=== PATIENT | male | born 1940 | race Two or more races ===

== ENCOUNTER → 2017-02-01 | Outpatient (CLI) | payer MEDICARE, MEDICAID ==
[~2017-02-01] MED LIST: ACET325T14 PO; ATOR20TA9 PO; FURO20TA3 PO; GLUC1500 PO; IBUP200C8 PO; LISI2.5T PO; MULT1CAP19 PO
== END | disposition home or self-care (01) ==
LOC: CVU 09:10
PROVIDERS: ATTEND Internal Medicine Cardiovascular Disease
DX: I73.9 Peripheral vascular disease, unspecified (principal); E78.2 Mixed hyperlipidemia; I12.9 Hypertensive chronic kidney disease with stage 1 through stage 4 chronic kidney disease, or unspecified chronic kidney disease; N18.9 Chronic kidney disease, unspecified; E11.22 Type 2 diabetes mellitus with diabetic chronic kidney disease
CPT/HCPCS: 93922